=== PATIENT | female | born 1935 | race Hispanic/Latino ===

== ENCOUNTER → 2022-03-14 | Outpatient (CLI) | payer MEDICARE | LOC: RAD 13:43 | PROVIDERS: ATTEND Internal Medicine | DX: M16.12 Unilateral primary osteoarthritis, left hip (principal); M17.12 Unilateral primary osteoarthritis, left knee ==

== ENCOUNTER → 2022-05-23 | Outpatient (CLI) | payer MEDICARE | LOC: RAD 15:08 | PROVIDERS: ATTEND Internal Medicine | DX: J40 Bronchitis, not specified as acute or chronic (principal) | CPT/HCPCS: 71046 ==

== ENCOUNTER → 2024-09-05 | Outpatient (REF) | payer MEDICARE | LOC: RAD 14:28 | PROVIDERS: ATTEND Internal Medicine | DX: M25.552 Pain in left hip (principal); W19.XXXA Unspecified fall, initial encounter ==

== ENCOUNTER → 2024-11-27 | Outpatient (REF) | payer MEDICARE | LOC: RAD 09:12 | PROVIDERS: ATTEND Internal Medicine | DX: M25.511 Pain in right shoulder (principal); M89.8X2 Other specified disorders of bone, upper arm ==

== ENCOUNTER → 2024-12-04 | Outpatient (RCR) | payer MEDICARE | LOC: OT 12-03 14:20 | PROVIDERS: ATTEND Internal Medicine | DX: M75.102 Unspecified rotator cuff tear or rupture of left shoulder, not specified as traumatic (principal) ==

== ENCOUNTER → 2025-01-08 | Outpatient (REF) | payer MEDICARE ==
[~2025-01-08] MED LIST: BUSPIRONE HCL5 MG PO; CITALOPRAM HBR20 MG PO; LEVOCETIRIZINE D5 MG PO; LEVOTHYROXINE112 MCG PO; NEURONTIN300 MG PO; OLMESARTAN MEDO20 MG PO; ONE DAILY COMP1 EACH PO; ROPINIROLE HCL0.5 MG PO; TRAZODONE HCL100 MG PO; TRELEGY ELLIPT1 EACH INH; VITAMIN D3125 MCG PO
[2025-01-08 12:33] LABS: BASOPHILS # (AUTO) 0.1 (0.0-0.1); BASOPHILS % 1.4 % (0.0-1.0); EOSINOPHILS # (AUTO) 0.2 (0.0-0.4); EOSINOPHILS % 4.9 % (0.0-6.0); HEMATOCRIT 37.3 % (34.2-44.1); HEMOGLOBIN 12.1 g/dL (12.0-16.0); LYMPHOCYTES # (AUTO) 1.2 (1.0-3.2); LYMPHOCYTES % 27.3 % (18.0-39.1); MEAN CORPUSCULAR HEMOGLOBIN 33.2 pg (28-32); MEAN CORPUSCULAR HGB CONC 32.4 g/dL (31-35); MEAN CORPUSCULAR VOLUME 102.5 fL (81-99); MONOCYTES # (AUTO) 0.3 (0.2-0.8); MONOCYTES % 6.5 % (4.4-11.3); NEUTROPHILS # (AUTO) 2.6 (2.1-6.9); NEUTROPHILS % 59.7 % (38.7-80.0); PLATELET COUNT 182 x10e3/uL (140-360); RED BLOOD COUNT 3.64 x10e6/uL (3.6-5.1); RED CELL DISTRIBUTION WIDTH 14.2 % (11.7-14.4); WHITE BLOOD COUNT 4.32 x10e3/uL (4.8-10.8)
[2025-01-08 12:49] LABS: INR 0.93; PROTHROMBIN TIME 13.3 seconds (11.9-14.5)
[2025-01-08 12:50] LABS: PARTIAL THROMBOPLASTIN TIME 28.1 seconds (23.8-35.5)
[2025-01-08 12:56] LABS: ALBUMIN 4.5 g/dL (3.5-5.0); ALBUMIN/GLOBULIN RATIO 1.3 (0.8-2.0); ANION GAP 15.8 mmol/L (8-16); BILIRUBIN,TOTAL 0.7 mg/dL (0.2-1.2); CALCIUM 9.1 mg/dL (8.4-10.2); CREATININE, SERUM 1.12 mg/dL (0.57-1.11); POTASSIUM 3.8 mmol/L (3.5-5.1); TOTAL PROTEIN 7.9 g/dL (6.5-8.1)
[2025-01-08 13:29] LABS: FREE THYROXINE INDEX 3.2479 (1.4-3.8); T3 UPTAKE 38.62 % (22.5-37.0); THYROID STIMULATING HORMONE 0.808 uIU/mL (0.350-4.940)
[2025-01-08 13:49] LABS: T4 (THYROXINE) 8.41 ug/dL (4.5-10.9)
== END ==
LOC: RAD 10:59 → EDSTATUS 01-13 07:00
PROVIDERS: ATTEND Behavior Technician
DX: Z01.818 Encounter for other preprocedural examination (principal); S42.321A Displaced transverse fracture of shaft of humerus, right arm, initial encounter for closed fracture
CPT/HCPCS: 36415; 71046; 80053; 83036; 84436; 84443; 84479; 85025; 85610; 85730; 86140; 86850; 86900; 93005